=== PATIENT | male | born 1940 | race Caucasian/White ===

== ENCOUNTER → 2017-01-08 | Outpatient (CLI) | payer OTHER ==
[~2017-01-08] MED LIST: CLONIDINE0.1 PO; DOXAZOSIN MESYLA8 MG PO; LISINOPRIL40 MG PO; LOSARTAN POTAS100 MG PO; METOPROLOL SUCC50 MG PO; NORVASC10 MG PO; TOPROL XL100 MG PO
== END ==
LOC: SLEEPLAB 19:25
DX: G47.33 Obstructive sleep apnea (adult) (pediatric) (principal)